=== PATIENT | female | born 2005 | race Hispanic/Latino ===

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

== ENCOUNTER 2025-03-27 22:16 | Emergency (ER) | payer OTHER, SELFPAY ==
[2025-03-27 23:12] LABS: Bacteria/HPF None Seen HPF (None Seen); CAUTI Indications for Culture Pelvic or flank pain; Glucose, Urine (Dipstick) Normal (Negative); Leukocyte 25 Leu/uL (Negative); Protein, Urine (Dipstick) Negative (Neg-Trace); RBC/HPF 0-3 HPF (0-3); Specific Gravity, Urine 1.009 (1.002-1.036); WBC/HPF 0-3 HPF (0-3)
[2025-03-27 23:14] LABS: Urine Culture Reflex No No
[2025-03-27] MEDS ORDERED: Dexamethasone 10 MG/ML VIAL ONE (23:25)
[2025-03-27 23:35] LABS: #Basophils Less than 0.03 10x3/uL (0.0-0.2); #Eosinophils 0.12 10x3/uL (0.0-0.7); #Monocytes 0.85 10x3/uL (0.11-0.59); #Neutrophils 3.96 10x3/uL (1.40-6.50); %Basophils 0.2 % (0.0-1.0); %Eosinophils 1.5 % (0.0-10.0); %Lymphocytes 39.2 % (28.0-48.0); %Monocytes 10.4 % (0.0-4.0); %Neutrophils 48.3 % (31.0-61.0); Hematocrit 37.8 % (36.0-47.0); Hemoglobin 12.7 g/dL (12.0-16.0); Mean Corpuscular Hemoglobin 28.6 pg (25.0-35.0); Mean Corpuscular Volume 85.1 fL (78.0-98.0); Platelet Count 273 10x3/uL (130-400); Red Blood Cell (RBC) Count 4.44 mill/uL (4.00-5.20); White Blood Cell (WBC) Count 8.19 10x3/uL (4.8-10.8)
[2025-03-27 23:47] LABS: BHCG - Serum Negative (NEGATIVE); Pregs Control Background? CLEAR/WHITE (CLR/WHITE); Pregs Control Bar Appear? YES (CONTROL BAR)
[2025-03-27 23:55] LABS: ALT (SGPT) 36 U/L (Less than 34); AST (SGOT) 31 U/L (11-34); Albumin 3.9 g/dL (3.1-4.5); Alkaline Phosphatase 75 U/L (40-100); Anion Gap 13 mmol/L (10-20); BUN (Urea Nitrogen) 7 mg/dL (7.0-18.7); Bilirubin, Total 0.3 mg/dL (0.3-1.2); Calc. Creatinine Clearance 0 mL/min (70-130); Calcium 8.7 mg/dL (7.8-10.44); Carbon Dioxide 26 mmol/L (22-29); Chloride 106 mmol/L (98-107); Globulin 3.6 g/dL (2.4-3.5); Glucose 105 mg/dL (70-105); Lipase 20 U/L (8-78); Potassium 3.8 mmol/L (3.5-5.1); Sodium 141 mmol/L (136-145)
[2025-03-28] MEDS ORDERED: Ketorolac Tromethamine 30 MG (1 mL) VIAL ONE (00:08)
[2025-03-28] MEDS ORDERED: diphenhydrAMINE 50 MG/ML VIAL ONE (00:08)
[2025-03-28] MEDS ORDERED: Metoclopramide HCl 10 MG (2 mL) VIAL ONE (00:08)
[2025-03-28] MEDS ORDERED: Benzonatate 100 MG CAP ONE (00:25)
== END 2025-03-28 02:00 | disposition home or self-care (01) ==
LOC: ERS 22:16
DX: J40 Bronchitis, not specified as acute or chronic (principal); R51.9 Headache, unspecified
CPT/HCPCS: 36415; 71046; 80053; 81001; 83690; 84703; 85025; 87081; 87428; 87430; 96365; 96366; 96375; J1100; J1200; J1885; J2765; J7620